=== PATIENT | male | born 1950 | race Hispanic/Latino ===

== ENCOUNTER 2023-09-28 09:39 | Inpatient (IN) | payer MEDICARE ==
[~2023-09-28] VITALS: Ht 165.1 cm; Wt 98.9 kg
[2023-09-28] VITALS (7 sets, daily range): BP systolic 106–118; BP diastolic 41–71; PULSE 91–121; RESP 16–22; O2SAT 92
[2023-09-28] MEDS: 0.9%NACL 1000ML 1,000 ML IV ONE (10:07)
[2023-09-28 10:10] LABS: BASOPHILS # (AUTO) 0.09 K/uL (0.00-0.20); BASOPHILS % (AUTO) 1.6 % (0.0-5.0); EOSINOPHILS # (AUTO) 0.03 K/uL (0.00-0.70); EOSINOPHILS % (AUTO) 0.5 % (0.0-8.0); HEMATOCRIT 24.8 % (42-54); IMMATURE GRANULOCYTE ABSOLUTE 0.58 K/uL (0-1); LYMPHOCYTES # (AUTO) 1.6 K/uL (1.0-4.8); LYMPHOCYTES % (AUTO) 27.3 % (21.0-51.0); MEAN CORPUSCULAR HEMOGLOBIN 29.3 pg (27.0-33.0); MEAN CORPUSCULAR HGB CONC 32.3 g/dL (32.0-36.0); MEAN CORPUSCULAR VOLUME 90.8 fL (79-99); MONOCYTES # (AUTO) 0.8 K/uL (0.1-1.0); MONOCYTES % (AUTO) 14.8 % (3.0-13.0); NEUTROPHILS # (AUTO) 2.6 K/uL (1.8-7.7); NEUTROPHILS % (AUTO) 45.6 % (40.0-77.0); NUCLEATED RED BLOOD CELLS 20.2 % (0.0-0.19); PLATELET COUNT (AUTO) 28 K/uL (130-400); RED BLOOD CELL COUNT(AUTO) 2.73 MIL/uL (4.50-6.20); RED CELL DISTRIBUTION WIDTH 15.8 % (11.0-15.5); WHITE BLOOD COUNT (AUTO) 5.7 K/uL (4.8-10.8)
[2023-09-28 10:28] LABS: ALANINE AMINOTRANSFERASE 50 U/L (12-78); ALBUMIN 1.9 g/dL (3.5-5.0); AMMONIA < 10 umol/L (11-32); ASPARTATE AMINOTRANSFERASE 201 U/L (10-37); BILIRUBIN,TOTAL 3.4 mg/dL (0.2-1.0); CARBON DIOXIDE 25 mmol/L (21-32); CREATININE 1.6 mg/dL (0.5-1.3); GLOMERULAR FILTR. RATE CALC 46 mL/min (>90); GLUCOSE,RANDOM 175 mg/dL (70-105); SODIUM SERUM 130 mmol/L (136-145); UREA NITROGEN, BLOOD 32 mg/dL (7-18)
[2023-09-28 10:32] LABS: CHLORIDE 89 mmol/L (101-111)
[2023-09-28 11:15] LABS: BAND NEUTROPHILS % (MANUAL) 11 % (0-2); LYMPHOCYTES % (MANUAL) 19 % (22-44); MAN.DIFF COMMENT-IMPRESSION MANUAL DIFFERENTIAL; MONOCYTES % (MANUAL) 13 % (2-9); MYELOCYTES % 2 % (0-0); PLATELET MORPHOLOGY COMMENT MARKED DECREASE; REACTIVE LYMPHOCYTES 15 % (0-0); SEGMENTED NEUTROPHILS % 40 % (40-70); TOTAL CELLS COUNTED 100
[2023-09-28] MEDS: PANTOPRAZOLE 40 MG/VIAL IVP SCH (12:43)
[2023-09-28] MEDS: cefTRIAXone 1G VIAL IVPB SCH (12:43)
[2023-09-28] MEDS: 0.9%NACL 1000ML 1,000 ML IV SCH (12:44)
[2023-09-28 12:48] LABS: INR 1.19 (0.85-1.15); PROTHROMBIN TIME 12.7 SEC (9.6-11.6)
[2023-09-28 12:50] LABS: PARTIAL THROMBOPLASTIN TIME 29.7 SEC (26.3-35.5)
[2023-09-28] MEDS ORDERED: ONDANSETRON 4MG INJ IVP PRN (13:00)
[2023-09-28] MEDS: octREOtide aceTATe 1,250 MCG in 0.9% NACL 250ML 250 ML IV SCH (13:17)
[2023-09-28 15:10] LABS: HEMATOCRIT 20.4 % (42-54)
[2023-09-28 17:27] LABS: FERRITIN 21275 ng/mL (30-400)
[2023-09-28 17:30] LABS: CHOLESTEROL 108 mg/dL (<200); HDL CHOLESTEROL 18 mg/dL (29-71); LDL DIRECT 60 mg/dL (0-99); TRIGLYCERIDES 137 mg/dL (30-200)
[2023-09-28] MEDS ORDERED: CLOP75TA32 PO (17:50)
[2023-09-28] MEDS ORDERED: PIOG30TA70 PO (17:50)
[2023-09-28] MEDS ORDERED: FOLI0.8T3 PO (17:50)
[2023-09-28] MEDS ORDERED: METO25TA6 PO (17:50)
[2023-09-28] MEDS ORDERED: TRAM50TA4 PO (17:50)
[2023-09-28] MEDS ORDERED: ERGO500093 PO (17:50)
[2023-09-28 18:49] LABS: APPEARANCE,URINE CLOUDY (CLEAR); BILIRUBIN,URINE NEGATIVE (NEGATIVE); COLOR,URINE YELLOW (YELLOW); GLUCOSE, URINE (UA) NEGATIVE (NEGATIVE); KETONES,URINE NEGATIVE (NEGATIVE); LEUKOCYTE ESTERASE ,URINE NEGATIVE Leu/uL (NEGATIVE); NITRATE,URINE NEGATIVE (NEGATIVE); OCCULT BLOOD,URINE NEGATIVE (NEGATIVE); PROTEIN,URINE 20 mg/dL (NEGATIVE); UROBILINOGEN,URINE 6 mg/dL (0.2-1.0)
[2023-09-28 18:50] LABS: ADD UA MICROSCOPIC YES
[2023-09-28 18:52] LABS: CREATININE,URINE RANDOM 110.09 mg/dL (30-135)
[2023-09-28 19:08] LABS: BACTERIA,URINE RARE /HPF (None Seen); MUCUS,URINE RARE LPF (None Seen); SQUAMOUS EPITHELIAL CELL,UR RARE /HPF (0-2); UNCLASSIFIED CRYSTAL 3 /HPF (None Seen); YEAST,URINE BUDDING FEW /HPF (None Seen)
[2023-09-28] MEDS: ceFEPime HCL 2 GM VIAL IVPB SCH (20:47)
[2023-09-28 21:12] LABS: HEMATOCRIT 22.2 % (42-54)
[2023-09-29] VITALS (44 sets, daily range): BP systolic 89–127; BP diastolic 40–79; PULSE 81–116; RESP 10–24; O2SAT 64
[2023-09-29 04:02] LABS: BASOPHILS # (AUTO) 0.02 K/uL (0.00-0.20); BASOPHILS % (AUTO) 0.7 % (0.0-5.0); EOSINOPHILS # (AUTO) 0.02 K/uL (0.00-0.70); EOSINOPHILS % (AUTO) 0.7 % (0.0-8.0); HEMATOCRIT 21.1 % (42-54); IMMATURE GRANULOCYTE ABSOLUTE 0.32 K/uL (0-1); LYMPHOCYTES # (AUTO) 0.7 K/uL (1.0-4.8); LYMPHOCYTES % (AUTO) 23.7 % (21.0-51.0); MEAN CORPUSCULAR HEMOGLOBIN 28.5 pg (27.0-33.0); MEAN CORPUSCULAR HGB CONC 32.7 g/dL (32.0-36.0); MEAN CORPUSCULAR VOLUME 87.2 fL (79-99); MONOCYTES # (AUTO) 0.3 K/uL (0.1-1.0); MONOCYTES % (AUTO) 9.2 % (3.0-13.0); NEUTROPHILS # (AUTO) 1.5 K/uL (1.8-7.7); NEUTROPHILS % (AUTO) 54.4 % (40.0-77.0); NUCLEATED RED BLOOD CELLS 14.1 % (0.0-0.19); PLATELET COUNT (AUTO) 58 K/uL (130-400); RED BLOOD CELL COUNT(AUTO) 2.42 MIL/uL (4.50-6.20); RED CELL DISTRIBUTION WIDTH 15.8 % (11.0-15.5); WHITE BLOOD COUNT (AUTO) 2.8 K/uL (4.8-10.8)
[2023-09-29 04:27] LABS: ALBUMIN 1.6 g/dL (3.5-5.0); BILIRUBIN,TOTAL 2.2 mg/dL (0.2-1.0); CREATININE 1.1 mg/dL (0.5-1.3); MAGNESIUM 1.7 mg/dL (1.80-2.40); PHOSPHORUS 4.6 mg/dL (2.5-4.9); POTASSIUM 4.1 mmol/L (3.5-5.1); THYROID STIMULATING HORMONE 0.47 uIU/mL (0.36-3.74); URIC ACID 8.5 mg/dL (2.6-7.2)
[2023-09-29] MEDS ORDERED: NON-FORMULARY MEDICATION 1 EACH (Folic Acid 0.8 MG) PO SCH (09:00)
[2023-09-29] MEDS ORDERED: ERGOCALCIFEROL (VITAMIN D2) 50,000 UNIT CAPSULE PO SCH (09:00)
[2023-09-29] MEDS ORDERED: doCUSate SODIUM 100 MG CAP PO PRN (10:00)
[2023-09-29] MEDS: Solu-medROL 40MG VIAL IVP SCH (10:26)
[2023-09-29] MEDS: METOPROLOL TARTRATE 25 MG TAB PO SCH (10:26)
[2023-09-29] MEDS: MAGNESIUM 2GM PREMIX 50ML 50 ML IV PRN (10:27)
[2023-09-29] MEDS ORDERED: FENTanyl CITRate PF 50 MCG/1 ML 2ML VIAL ONE (12:03)
[2023-09-29 15:25] LABS: HIV 1&2 ANTIBODY Non-Reactive (Negative); HIV-1 p24 Antigen Non-Reactive (Negative)
[2023-09-30] VITALS (17 sets, daily range): BP systolic 89–150; BP diastolic 42–90; PULSE 84–129; RESP 12–25; O2SAT 94–96
[2023-09-30 04:37] LABS: BASOPHILS # (AUTO) 0.04 K/uL (0.00-0.20); EOSINOPHILS # (AUTO) 0.01 K/uL (0.00-0.70); EOSINOPHILS % (AUTO) 0.2 % (0.0-8.0); HEMATOCRIT 25.3 % (42-54); IMMATURE GRANULOCYTE ABSOLUTE 0.46 K/uL (0-1); LYMPHOCYTES # (AUTO) 0.9 K/uL (1.0-4.8); LYMPHOCYTES % (AUTO) 21.5 % (21.0-51.0); MEAN CORPUSCULAR HEMOGLOBIN 29.7 pg (27.0-33.0); MEAN CORPUSCULAR HGB CONC 33.6 g/dL (32.0-36.0); MEAN CORPUSCULAR VOLUME 88.5 fL (79-99); MONOCYTES # (AUTO) 0.4 K/uL (0.1-1.0); MONOCYTES % (AUTO) 10.6 % (3.0-13.0); NEUTROPHILS # (AUTO) 2.2 K/uL (1.8-7.7); NEUTROPHILS % (AUTO) 55.3 % (40.0-77.0); NUCLEATED RED BLOOD CELLS 12.9 % (0.0-0.19); PLATELET COUNT (AUTO) 45 K/uL (130-400); RED BLOOD CELL COUNT(AUTO) 2.86 MIL/uL (4.50-6.20); RED CELL DISTRIBUTION WIDTH 15.4 % (11.0-15.5)
[2023-09-30 04:52] LABS: INR 1.13 (0.85-1.15); PROTHROMBIN TIME 12.1 SEC (9.6-11.6)
[2023-09-30 04:56] LABS: ALBUMIN 1.6 g/dL (3.5-5.0); BILIRUBIN,TOTAL 1.6 mg/dL (0.2-1.0); PHOSPHORUS 3.7 mg/dL (2.5-4.9); POTASSIUM 4.3 mmol/L (3.5-5.1); TOTAL PROTEIN, SERUM 4.4 g/dL (6.0-8.3)
[2023-09-30 05:08] LABS: BAND NEUTROPHILS % (MANUAL) 2 % (0-2); BASOPHILS % (MANUAL) 1 % (0-2); EOSINOPHILS % (MANUAL) 1 % (1-6); LYMPHOCYTES % (MANUAL) 26 % (22-44); MONOCYTES % (MANUAL) 4 % (2-9); OTHER CELLS,MANUAL % 4 (0-0); SEGMENTED NEUTROPHILS % 62 % (40-70); TOTAL CELLS COUNTED 100
[2023-09-30 05:09] LABS: MAN.DIFF COMMENT-IMPRESSION MANUAL DIFFERENTIAL
[2023-09-30 05:13] LABS: PLATELET MORPHOLOGY COMMENT MARKED DECREASE
[2023-09-30] MEDS: POLYETHYLENE GLYCOL 3350 17 GM POWD.PACK PO SCH (08:14)
[2023-09-30] MEDS: FOLic ACID 1 MG TABLET PO SCH (08:14)
[2023-09-30] MEDS: LACTULOSE 20 GM/30 ML UDCUP PO PRN (08:14)
[2023-09-30] MEDS: ERGOCALCIFEROL (VITAMIN D2) 50,000 UNIT CAPSULE PO SCH (08:14)
[2023-09-30 08:16] LABS: RHEUMATOID ARTHRITIS FACTOR 13.8 IU/mL (<14.0)
[2023-09-30] MEDS: Solu-medROL 40MG VIAL IVP SCH (11:22)
[2023-09-30 12:20] LABS: ABG BASE EXCESS -3.1 mmol/L (-2.0-3.0); ABG HCO3 19.3 mmol/L (21.0-28.0); ABG OXYGEN SATURATION 90.5 % (95.0-99.0); ABG PCO2 26 mmHg (35-48); ABG PH 7.485 (7.35-7.450); CARBON MONOXIDE 0.1; DEVICE COMMENT RRROSIE; HHb 9.5; VENT MODE, BG RA (ROOM AIR)
[2023-09-30] MEDS ORDERED: 0.9% NACL 250ML 250 ML IV SCH (12:30)
[2023-09-30 12:59] LABS: HEMATOCRIT 26.3 % (42-54)
[2023-09-30 13:13] LABS: MAGNESIUM 1.9 mg/dL (1.80-2.40); POTASSIUM 3.5 mmol/L (3.5-5.1)
[2023-09-30] MEDS ORDERED: POTASSIUM CHLORIDE 10% ELIXIR 20 MEQ/15 ML UDCUP PO PRN (14:00)
[2023-09-30] MEDS: KCL 20 MEQ ERTAB PO PRN (14:11)
[2023-09-30] MEDS: LIDOCAINE 5% TOPICAL PATCH TP SCH (15:10)
[2023-09-30] MEDS: KETOROLAC 15MG/ML VIAL (15MG/ML) IV PRN (17:38)
[2023-10-01] VITALS (8 sets, daily range): BP systolic 119–144; BP diastolic 69–92; PULSE 92–113; RESP 16–18; O2SAT 96–97
[2023-10-01 03:44] LABS: BASOPHILS # (AUTO) 0.05 K/uL (0.00-0.20); BASOPHILS % (AUTO) 1.2 % (0.0-5.0); EOSINOPHILS # (AUTO) 0.01 K/uL (0.00-0.70); EOSINOPHILS % (AUTO) 0.2 % (0.0-8.0); HEMATOCRIT 25.4 % (42-54); IMMATURE GRANULOCYTE ABSOLUTE 0.44 K/uL (0-1); LYMPHOCYTES # (AUTO) 0.8 K/uL (1.0-4.8); LYMPHOCYTES % (AUTO) 18.9 % (21.0-51.0); MEAN CORPUSCULAR HEMOGLOBIN 29.2 pg (27.0-33.0); MEAN CORPUSCULAR HGB CONC 33.5 g/dL (32.0-36.0); MEAN CORPUSCULAR VOLUME 87.3 fL (79-99); MONOCYTES # (AUTO) 0.3 K/uL (0.1-1.0); MONOCYTES % (AUTO) 6.5 % (3.0-13.0); NEUTROPHILS # (AUTO) 2.6 K/uL (1.8-7.7); NEUTROPHILS % (AUTO) 62.7 % (40.0-77.0); NUCLEATED RED BLOOD CELLS 12.7 % (0.0-0.19); PLATELET COUNT (AUTO) 37 K/uL (130-400); RED BLOOD CELL COUNT(AUTO) 2.91 MIL/uL (4.50-6.20); RED CELL DISTRIBUTION WIDTH 15.7 % (11.0-15.5); WHITE BLOOD COUNT (AUTO) 4.2 K/uL (4.8-10.8)
[2023-10-01 04:12] LABS: ALBUMIN 1.7 g/dL (3.5-5.0); BILIRUBIN,TOTAL 1.6 mg/dL (0.2-1.0); CREATININE 1.1 mg/dL (0.5-1.3); MAGNESIUM 2.5 mg/dL (1.80-2.40); PHOSPHORUS 3.2 mg/dL (2.5-4.9); POTASSIUM 4.4 mmol/L (3.5-5.1); TOTAL PROTEIN, SERUM 4.9 g/dL (6.0-8.3)
[2023-10-01 10:31] LABS: CREATININE 1.1 mg/dL (0.5-1.3); POTASSIUM 4.2 mmol/L (3.5-5.1)
[2023-10-01 13:15] LABS: IGA (IFE) 82 mg/dL (61-437); IGG (IMMUNOFIXATION) 562 mg/dL (603-1613); IGM (IMMUNOFIXATION) 50 mg/dL (15-143)
[2023-10-01 13:15] LABS: FREE KAPPA LIGHT CHAINS,S 28.3 mg/L (3.3-19.4)
[2023-10-01 15:15] LABS: GAMMA URINE 5.4 % (.)
[2023-10-01 15:15] LABS: ALBUMIN (IFE & ELECTROPHOR) 2.1 g/dL (2.9-4.4); ALBUMIN/GLOBULIN RATIO (IFE) 0.8 (0.7-1.7); ALPHA-1 (IFE & PEP) 0.5 g/dL (0.0-0.4); ALPHA-2 (IFE & PEP) 0.8 g/dL (0.4-1.0); BETA (IFE & ELP) 0.8 g/dL (0.7-1.3); GAMMA GLOBULINS (IFE & ELP) 0.6 g/dL (0.4-1.8); GLOBULIN TOTAL (IFE) 2.7 g/dL (2.2-3.9); IGA (IFE) 89 mg/dL (61-437); IGG (IMMUNOFIXATION) 609 mg/dL (603-1613); IGM (IMMUNOFIXATION) 53 mg/dL (15-143); M-SPIKE (IEP) Not Observed g/dL (Not Observed); TOTAL PROTEIN 4.8 g/dL (6.0-8.5)
[2023-10-01 15:15] LABS: ATYPICAL P-ANCA AB <1:20 titer (Neg:<1:20); CYTOPLASMIC (C-ANCA) AB, IGG <1:20 titer (Neg:<1:20)
[2023-10-01] MEDS: METOPROLOL TARTRATE 25 MG TAB PO ONE (21:31)
[2023-10-02] VITALS (9 sets, daily range): BP systolic 112–137; BP diastolic 72–86; PULSE 67–100; RESP 18; O2SAT 95–96
[2023-10-02 04:00] LABS: BASOPHILS # (AUTO) 0.03 K/uL (0.00-0.20); BASOPHILS % (AUTO) 0.8 % (0.0-5.0); EOSINOPHILS # (AUTO) 0.02 K/uL (0.00-0.70); EOSINOPHILS % (AUTO) 0.5 % (0.0-8.0); HEMATOCRIT 25.3 % (42-54); IMMATURE GRANULOCYTE ABSOLUTE 0.41 K/uL (0-1); LYMPHOCYTES # (AUTO) 0.5 K/uL (1.0-4.8); LYMPHOCYTES % (AUTO) 13.7 % (21.0-51.0); MEAN CORPUSCULAR HGB CONC 33.2 g/dL (32.0-36.0); MEAN CORPUSCULAR VOLUME 87.2 fL (79-99); MONOCYTES # (AUTO) 0.4 K/uL (0.1-1.0); MONOCYTES % (AUTO) 10.2 % (3.0-13.0); NEUTROPHILS # (AUTO) 2.5 K/uL (1.8-7.7); NEUTROPHILS % (AUTO) 64.4 % (40.0-77.0); NUCLEATED RED BLOOD CELLS 10.7 % (0.0-0.19); PLATELET COUNT (AUTO) 30 K/uL (130-400); RED CELL DISTRIBUTION WIDTH 15.4 % (11.0-15.5); WHITE BLOOD COUNT (AUTO) 3.9 K/uL (4.8-10.8)
[2023-10-02 04:26] LABS: ALBUMIN 1.8 g/dL (3.5-5.0); BILIRUBIN,TOTAL 1.4 mg/dL (0.2-1.0); CREATININE 1.1 mg/dL (0.5-1.3); MAGNESIUM 2.1 mg/dL (1.80-2.40); POTASSIUM 4.2 mmol/L (3.5-5.1); TOTAL PROTEIN, SERUM 4.9 g/dL (6.0-8.3)
[2023-10-02 04:49] LABS: BAND NEUTROPHILS % (MANUAL) 8 % (0-2); LYMPHOCYTES % (MANUAL) 7 % (22-44); MAN.DIFF COMMENT-IMPRESSION MANUAL DIFFERENTIAL; METAMYELOCYTES % 3 % (0-0); MONOCYTES % (MANUAL) 7 % (2-9); OTHER CELLS,MANUAL % 2 (0-0); SEGMENTED NEUTROPHILS % 73 % (40-70); TOTAL CELLS COUNTED 100
[2023-10-02 04:50] LABS: PLATELET MORPHOLOGY COMMENT MARKED DECREASE
[2023-10-02] MEDS: PERFLUTREN PROTEIN-A MICROSPHR 0.22 MG/ML VIAL IV ONE (08:30)
[2023-10-02] MEDS: METOPROLOL TARTRATE 50 MG TAB PO SCH (09:11)
[2023-10-03] VITALS (7 sets, daily range): BP systolic 125–157; BP diastolic 78–95; PULSE 91–108; RESP 18–20; O2SAT 95–99
[2023-10-03 03:46] LABS: HEMATOCRIT 26.1 % (42-54); MEAN CORPUSCULAR HEMOGLOBIN 29.4 pg (27.0-33.0); MEAN CORPUSCULAR HGB CONC 33.7 g/dL (32.0-36.0); MEAN CORPUSCULAR VOLUME 87.3 fL (79-99); RED BLOOD CELL COUNT(AUTO) 2.99 MIL/uL (4.50-6.20); RED CELL DISTRIBUTION WIDTH 15.6 % (11.0-15.5); WHITE BLOOD COUNT (AUTO) 4.5 K/uL (4.8-10.8)
[2023-10-03 04:05] LABS: ALBUMIN 1.9 g/dL (3.5-5.0); BILIRUBIN,TOTAL 1.5 mg/dL (0.2-1.0); MAGNESIUM 1.9 mg/dL (1.80-2.40); PHOSPHORUS 2.9 mg/dL (2.5-4.9); TOTAL PROTEIN, SERUM 4.9 g/dL (6.0-8.3)
[2023-10-04] VITALS (8 sets, daily range): BP systolic 121–154; BP diastolic 69–96; PULSE 59–96; RESP 18–20; O2SAT 95
[2023-10-04 05:58] LABS: HEMATOCRIT 24.3 % (42-54); MEAN CORPUSCULAR HEMOGLOBIN 29.1 pg (27.0-33.0); MEAN CORPUSCULAR HGB CONC 33.3 g/dL (32.0-36.0); MEAN CORPUSCULAR VOLUME 87.4 fL (79-99); NUCLEATED RED BLOOD CELLS 11.7 % (0.0-0.19); PLATELET COUNT (AUTO) 22 K/uL (130-400); RED BLOOD CELL COUNT(AUTO) 2.78 MIL/uL (4.50-6.20); RED CELL DISTRIBUTION WIDTH 15.6 % (11.0-15.5); WHITE BLOOD COUNT (AUTO) 4.5 K/uL (4.8-10.8)
[2023-10-04 06:22] LABS: BAND NEUTROPHILS % (MANUAL) 8 % (0-2); LYMPHOCYTES % (MANUAL) 13 % (22-44); MAN.DIFF COMMENT-IMPRESSION MANUAL DIFFERENTIAL; METAMYELOCYTES % 1 % (0-0); MONOCYTES % (MANUAL) 2 % (2-9); PLATELET MORPHOLOGY COMMENT MARKED DECREASE; SEGMENTED NEUTROPHILS % 76 % (40-70); TOTAL CELLS COUNTED 100
[2023-10-04 06:27] LABS: ALBUMIN 1.8 g/dL (3.5-5.0); BILIRUBIN,TOTAL 1.6 mg/dL (0.2-1.0); MAGNESIUM 1.8 mg/dL (1.80-2.40); PHOSPHORUS 3.3 mg/dL (2.5-4.9); TOTAL PROTEIN, SERUM 4.7 g/dL (6.0-8.3)
[2023-10-05] VITALS (9 sets, daily range): BP systolic 102–139; BP diastolic 59–84; PULSE 61–113; RESP 16–20; O2SAT 92–96
[2023-10-05 05:49] LABS: HEMATOCRIT 23.3 % (42-54); MEAN CORPUSCULAR HEMOGLOBIN 29.2 pg (27.0-33.0); MEAN CORPUSCULAR HGB CONC 33.5 g/dL (32.0-36.0); MEAN CORPUSCULAR VOLUME 87.3 fL (79-99); NUCLEATED RED BLOOD CELLS 10.7 % (0.0-0.19); PLATELET COUNT (AUTO) 42 K/uL (130-400); RED BLOOD CELL COUNT(AUTO) 2.67 MIL/uL (4.50-6.20); RED CELL DISTRIBUTION WIDTH 15.8 % (11.0-15.5); WHITE BLOOD COUNT (AUTO) 3.6 K/uL (4.8-10.8)
[2023-10-05 06:21] LABS: ALBUMIN 1.9 g/dL (3.5-5.0); BILIRUBIN,TOTAL 1.7 mg/dL (0.2-1.0); CREATININE 0.9 mg/dL (0.5-1.3); MAGNESIUM 1.9 mg/dL (1.80-2.40); PHOSPHORUS 3.6 mg/dL (2.5-4.9); TOTAL PROTEIN, SERUM 4.8 g/dL (6.0-8.3)
[2023-10-05 06:57] LABS: BAND NEUTROPHILS % (MANUAL) 4 % (0-2); LYMPHOCYTES % (MANUAL) 15 % (22-44); METAMYELOCYTES % 3 % (0-0); MONOCYTES % (MANUAL) 4 % (2-9); SEGMENTED NEUTROPHILS % 74 % (40-70); TOTAL CELLS COUNTED 100
[2023-10-05 06:58] LABS: MAN.DIFF COMMENT-IMPRESSION MANUAL DIFFERENTIAL; PLATELET MORPHOLOGY COMMENT MARKED DECREASE
[2023-10-05] MEDS ORDERED: DiphenhydrAMINE HCL 50 MG/ML VIAL IV PRN (10:00)
[2023-10-05] MEDS ORDERED: acetaMINOPHEN 325 MG TAB PO PRN (10:00)
[2023-10-06] VITALS (7 sets, daily range): BP systolic 93–112; BP diastolic 58–81; PULSE 54–75; RESP 16–20; O2SAT 96
[2023-10-06 05:30] LABS: HEMATOCRIT 22.1 % (42-54); MEAN CORPUSCULAR HEMOGLOBIN 29.6 pg (27.0-33.0); MEAN CORPUSCULAR VOLUME 89.5 fL (79-99); RED BLOOD CELL COUNT(AUTO) 2.47 MIL/uL (4.50-6.20); RED CELL DISTRIBUTION WIDTH 15.9 % (11.0-15.5); WHITE BLOOD COUNT (AUTO) 3.4 K/uL (4.8-10.8)
[2023-10-06 06:32] LABS: ALBUMIN 1.8 g/dL (3.5-5.0); BILIRUBIN,TOTAL 1.4 mg/dL (0.2-1.0); MAGNESIUM 1.9 mg/dL (1.80-2.40); PHOSPHORUS 4.6 mg/dL (2.5-4.9); TOTAL PROTEIN, SERUM 4.4 g/dL (6.0-8.3)
== END 2023-10-06 23:09 | disposition short-term general hospital (02) | DRG 871 ==
LOC: EDH 09:39 → EDHIP 12:21 → 2CH 21:28 → 2AH 09-30 17:37 → 4DH 10-03 15:35 → 3DH 10-03 15:36
PROVIDERS: ADMIT Internal Medicine; ATTEND Internal Medicine
PROC: 30233N1 Transfusion of Nonautologous Red Blood Cells into Peripheral Vein, Percutaneous Approach (ICD-10-PCS; principal; 2023-09-28)
PROC: 30233R1 Transfusion of Nonautologous Platelets into Peripheral Vein, Percutaneous Approach (ICD-10-PCS; 2023-09-28)
PROC: 07DR3ZX Extraction of Iliac Bone Marrow, Percutaneous Approach, Diagnostic (ICD-10-PCS; 2023-09-28)
DX: A41.9 Sepsis, unspecified organism (principal); E43 Unspecified severe protein-calorie malnutrition; N17.0 Acute kidney failure with tubular necrosis; S72.011A Unspecified intracapsular fracture of right femur, initial encounter for closed fracture; K29.01 Acute gastritis with bleeding; E87.20 Acidosis, unspecified; E87.1 Hypo-osmolality and hyponatremia; D61.818 Other pancytopenia; G95.9 Disease of spinal cord, unspecified; I42.0 Dilated cardiomyopathy; I48.92 Unspecified atrial flutter; E78.00 Pure hypercholesterolemia, unspecified; E86.0 Dehydration; K74.60 Unspecified cirrhosis of liver; K59.00 Constipation, unspecified; I95.1 Orthostatic hypotension; D69.6 Thrombocytopenia, unspecified; E83.52 Hypercalcemia; E86.1 Hypovolemia; I48.91 Unspecified atrial fibrillation; K76.0 Fatty (change of) liver, not elsewhere classified; R54 Age-related physical debility; E83.119 Hemochromatosis, unspecified; R13.12 Dysphagia, oropharyngeal phase; X58.XXXA Exposure to other specified factors, initial encounter; R16.0 Hepatomegaly, not elsewhere classified; K29.00 Acute gastritis without bleeding; I12.9 Hypertensive chronic kidney disease with stage 1 through stage 4 chronic kidney disease, or unspecified chronic kidney disease; M71.20 Synovial cyst of popliteal space [Baker], unspecified knee; N18.9 Chronic kidney disease, unspecified; K76.9 Liver disease, unspecified; E11.22 Type 2 diabetes mellitus with diabetic chronic kidney disease; Y92.89 Other specified places as the place of occurrence of the external cause; Y99.8 Other external cause status; Z79.02 Long term (current) use of antithrombotics/antiplatelets; Z79.84 Long term (current) use of oral hypoglycemic drugs; Z82.49 Family history of ischemic heart disease and other diseases of the circulatory system; Y93.89 Activity, other specified; Z86.73 Personal history of transient ischemic attack (TIA), and cerebral infarction without residual deficits; Z90.49 Acquired absence of other specified parts of digestive tract; Z68.36 Body mass index [BMI] 36.0-36.9, adult
CPT/HCPCS: 36415; 36600; 38222; 70450; 70544; 70547; 70551; 71045; 72141; 72148; 74176; 74181; 74230; 77012; 80048; 80053; 80061; 80074; 81001; 81256; 82105; 82140; 82270; 82306; 82330; 82378; 82435; 82550; 82570; 82728; 82784; 82803; 82947; 82948; 83521; 83540; 83550; 83605; 83615; 83690; 83735; 83935; 83970; 84100; 84132; 84145; 84156; 84166; 84295; 84443; 84484; 84550; 85014; 85018; 85025; 85027; 85049; 85384; 85610; 85730; 86015; 86038; 86140; 86200; 86215; 86235; 86255; 86304; 86325; 86334; 86381; 86431; 86645; 86665; 86701; 86706; 86707; 86708; 86850; 86900; 86901; 86923; 87040; 87071; 87086; 87205; 87390; 92610; 92611; 93005; 93306; 93926; 93971; 96365; 96375; C8924; G0378; J0692; J0696; J1200; J1885; J2354; J2470; J2919; J3010; J3475; J7030; J7050; P9016; P9034; A4600; C1830; Q9956

== ENCOUNTER → 2023-09-28 | Outpatient (CLI) | payer MEDICARE ==
[~2023-09-28] MED LIST: CLOP75TA32 PO; ERGO500093 PO; FOLI0.8T3 PO; METO25TA6 PO; PIOG30TA70 PO; TRAM50TA4 PO
[2023-09-28 10:19] LABS: CREATININE 1.3 mg/dL (0.5-1.3); POTASSIUM 4.3 mmol/L (3.5-5.1)
[2023-09-28 10:25] LABS: % IRON SATURATION 101.9 % (30-44)
[2023-09-29 05:37] LABS: HEPATITIS A IGM ANTIBODY Non-Reactive (Nonreactive); HEPATITIS B SURFACE ANTIGEN Non-Reactive (Nonreactive); HEPATITIS C ANTIBODY Non-Reactive (Nonreactive)
[2023-09-29 05:38] LABS: HEPATITIS B CORE IGM ANTIBODY Non-Reactive (Negative)
[2023-09-29 08:15] LABS: HEPATITIS A ANTIBODY TOTAL Positive (Negative)
== END | disposition home or self-care (01) ==
LOC: LAB 08:15
PROVIDERS: ATTEND Internal Medicine Gastroenterology
DX: R93.3 Abnormal findings on diagnostic imaging of other parts of digestive tract (principal); K74.60 Unspecified cirrhosis of liver
CPT/HCPCS: 36415; 80048; 80074; 82728; 83540; 83550; 86015; 86038; 86215; 86235; 86381; 86706; 86707; 86708